=== PATIENT | female | born 1990 | race Two or more races ===

== ENCOUNTER 2023-10-19 22:37 | Inpatient (IN) | payer OTHER ==
[~2023-10-19] VITALS: Ht 162.6 cm; Wt 98.9 kg
[2023-10-20] MEDS ORDERED: VITAMIN B-121000 MC4 PO (00:44)
[2023-10-20] MEDS ORDERED: PRENATAL TABLE1 EAC1 PO (00:44)
[2023-10-20 00:47] LABS: PH,URINE 6.5 (5.0-8.0); URINE APPEARANCE Cloudy; URINE BILIRRUBIN Negative (NEGATIVE); URINE BLOOD Large; URINE COLOR Yellow; URINE GLUCOSE Negative (NEGATIVE); URINE LEUKOCYTE Large; URINE NITRATE Negative; URINE PROTEIN 30 (NEGATIVE); URINE UROBILINOGEN 0.2 E.U./dl
[2023-10-20 00:51] LABS: URINE EPITHELIAL CELLS 6.8 uL (0.0-38.8); URINE RBC 4380.4 uL (0.0-20.8); URINE WBC 2756.2 uL (0.0-23.2)
[2023-10-20] MEDS ORDERED: AMPICILLIN SODIUM 2,000 MG VIAL ONE (00:54)
[2023-10-20] MEDS ORDERED: BETAMETHASONE ACETATE,SOD PHOS 30 MG/5 ML ML ONE (00:57)
[2023-10-20 00:59] LABS: HEMATOCRIT 29.6 % (36.0-45.00); MEAN CELL VOLUME 72.8 fL (80.00-100.00); PLATELET COUNT 259 K/uL (150-450); RED BLOOD COUNT 4.06 M/uL (4.00-6.00); RED CELL DISTRIBUTION WIDTH 15.6 % (11.5-14.5)
[2023-10-20 01:11] LABS: INR 1.05
[2023-10-20 01:15] LABS: HEMOGLOBIN 9.7 g/dL (12.0-15.00); MEAN CORPUSCULAR HEMOGLOBIN 23.8 pg (27.00-32.0)
[2023-10-20] MEDS ORDERED: RINGERS SOLUTION,LACTATED 1,000 ML IV SCH (01:15)
[2023-10-20] MEDS ORDERED: BETAMETHASONE ACETATE,SOD PHOS 30 MG/5 ML ML IM ONE (01:15)
[2023-10-20] MEDS ORDERED: AMPICILLIN SODIUM 2,000 MG VIAL IV SCH (01:15)
[2023-10-20 01:16] LABS: ALBUMIN 2.7 gm/dL (3.4-5.0); BILIRUBIN TOTAL 0.19 mg/dL (0.3-1.2); CALCIUM 8.7 mg/dL (8.5-10.1); GFR 162.51; GLOBULINA 3.9 G/DL (2.4-3.5); POTASSIUM 3.85 mEq/L (3.5-5.1); TOTAL PROTEIN 6.6 gm/dL (6.4-8.2)
[2023-10-20 01:36] LABS: CREATININE SERUM 0.45 mg/dL (0.55-1.02)
[2023-10-21] MEDS ORDERED: BETAMETHASONE ACETATE,SOD PHOS 30 MG/5 ML ML IM ONE (01:15)
== END 2023-10-21 17:53 | disposition home or self-care (01) | DRG 831 ==
LOC: LDR 22:37 → OB/GYN 10-20 11:59
PROVIDERS: ADMIT Obstetrics & Gynecology; ATTEND Obstetrics & Gynecology
PROC: 4A1HXCZ Monitoring of Products of Conception, Cardiac Rate, External Approach (ICD-10-PCS; principal; 2023-10-19)
PROC: BY4FZZZ Ultrasonography of Third Trimester, Single Fetus (ICD-10-PCS; 2023-10-20)
PROC: BU4CZZZ Ultrasonography of Uterus and Ovaries (ICD-10-PCS; 2023-10-20)
DX: O46.8X3 Other antepartum hemorrhage, third trimester (principal); O60.03 Preterm labor without delivery, third trimester; O26.843 Uterine size-date discrepancy, third trimester; O36.8130 Decreased fetal movements, third trimester, not applicable or unspecified; Z3A.36 36 weeks gestation of pregnancy; Z20.822 Contact with and (suspected) exposure to COVID-19